=== PATIENT | female | born 1970 | race Caucasian/White ===

== ENCOUNTER → 2016-08-04 | Outpatient (CLI) | payer BC | END | disposition disaster alternative care site (69) | LOC: GBCOE 12:29 | DX: Z13.820 Encounter for screening for osteoporosis (principal); M85.89 Other specified disorders of bone density and structure, multiple sites ==

== ENCOUNTER 2016-10-03 09:15 | Emergency (ER) | payer BC ==
--- NOTE | ~2016-10-03 | ER ---
PATIENT'S NAME: ALEXA ELLIOTT [facility] AGE: 46 Y [address] ROOM: [place] [id number] LOCATION: ED ADMIT DATE: 10/03/2016 ER/Outpatient Report DISCHARGE DATE: 10/03/2016 FAMILY PHYSICIAN: Ernesto Maharaj MD ATTENDING PHYSICIAN: Paco Elliott CHIEF COMPLAINT: Abdominal pain. HISTORY OF PRESENT ILLNESS: Ms Elliott presents for evaluation of abdominal pain. This has been present for 2 weeks but has been significantly worse over the last few days. She was recently traveling and developed some constipation, but since she returned and has been even worse. She has tried some stool softeners with no improvement. She also notes that she has hemorrhoids and this makes it somewhat hesitant for her to stool. She has been trying some hemorrhoid cream, but that does not seem to be working. She has not contacted her primary care physician, Dr. Maharaj, regarding this issue. She reports the pain is cramping in nature and [id number] pain in episodes. PAST MEDICAL HISTORY: Documented on the record and reviewed by me. SOCIAL HISTORY: Documented on the record and reviewed by me. MEDICATIONS: Documented on the record and reviewed by me. ALLERGIES: DOCUMENTED ON THE RECORD AND REVIEWED BY ME. REVIEW OF SYSTEMS: All systems reviewed and negative except as noted in the HPI. PHYSICAL EXAMINATION: VITAL SIGNS: Blood pressure 129/75, pulse 85, respiratory rate 18, temperature 99.1, SpO2 is 96% on room air. Pain is minimal at this time. GENERAL: Age appropriate female, sitting upright on the exam chair no apparent pain or distress. NEUROLOGIC: Awake and alert. GCS 15. No focal deficits. No asymmetry. HEENT: Normocephalic, atraumatic. Eyes are PERRL. Oropharynx is clear. NECK: Supple. Trachea is midline CHEST/HEART: Regular rate and rhythm with PATIENT'S NAME: ALEXA ELLIOTT [facility] AGE: 46 Y [address] ROOM: [place] [id number] LOCATION: [facility] ADMIT DATE: 10/03/2016 ER/Outpatient Report DISCHARGE DATE: 10/03/2016 FAMILY PHYSICIAN: Ernesto Maharaj MD ATTENDING PHYSICIAN: Paco Elliott no murmurs. LUNGS: Clear to auscultation bilateral with no rhonchi, wheezes, or rales. ABDOMEN: Diffusely tender. No focal rebound, guarding, or masses. BACK: Normal to inspection and palpation. No CVA tenderness. EXTREMITIES: Warm and well perfused. No deformities or edema. SKIN: Clean, dry, and intact. No rashes. LABORATORY DATA AND X-RAYS: No imaging was obtained for this patient. CBC minimal elevation of white count of 12.4, hemoglobin 16.2, platelets of 266. CMS with no appreciable abnormalities of electrolytes, renal function, or LFTs other than a bilirubin of 2.2. Free T4 is 1.3, TSH is 0.059. Urinalysis does not appear to have any obvious abnormalities other than 25 leukocytes and 4 of urobilinogen and high bilirubin. No evidence of infection of blood. Ionized calcium is 4.49. IMPRESSION: 1. Constipation, unclear etiology. 2. Mild hyperbilirubinemia, likely secondary to lack of bowel evacuation. 3. No evidence of hepatobiliary dysfunction otherwise. EMERGENCY DEPARTMENT COURSE: The patient was seen evaluated as above. She was given prescriptions for mag citrate and some [place] for pain, should she require it. I explained this would likely cause her constipation to be worse. She has been passing gas regularly. She has been having occasional scant stool, but has not had a definitive large bowel movement for several days. I am recommending close followup with Dr. Maharaj tomorrow. I spoke with him and he will see her in clinic. The patient is to try mag citrate x2 today to encourage bowel movement. Follow up with him tomorrow. All questions answered. The patient was discharged in good condition. MD BRITTANY MOON/ramon /[id number] d: 10/04/16 1641 t: 10/17/16 0950, OUTPATIENT REPORT
[2016-10-03 10:31] LABS: BASOPHIL % 0.2 %; EOSINOPHIL % 0.2 %; HEMATOCRIT 43.8 % (33.0-46.0); HEMOGLOBIN 16.2 g/dL (10.0-15.0); IMMATURE GRANULOCYTE % 0.2 %; LYMPHOCYTE # 0.6 K/uL (0.8-4.0); LYMPHOCYTE % 5.1 %; MCH 33.7 pg (27.0-34.0); MCV 91.1 fl (83.0-98.0); MONOCYTE # 0.4 K/uL (0.0-1.0); MONOCYTE % 3.3 %; MPV 7.9 fl (9.4-12.4); NEUTROPHIL # (ANC) 11.3 K/uL (1.8-7.8); NRBC % 0 /100WBC (0-0.00); PLATELET COUNT 266 K/uL (150-450); RBC 4.81 M/uL (3.50-5.50); RDW-CV 11.6 % (11.9-14.6); WBC 12.4 K/uL (4.0-11.0)
[2016-10-03 10:51] LABS: ALK PHOS 47 IU/L (33-138); ALT 20 IU/L (12-78); ANION GAP 12.3 (10.0-19.0); AST 23 IU/L (10-40); BLOOD UREA NITROGEN 8 mg/dL (6-24); CALCIUM 8.6 mg/dL (8.5-10.5); CHLORIDE 106 mMol/L (96-110); CO2 24 mMol/L (22-32); CREATININE 0.7 mg/dL (0.5-1.1); POTASSIUM 4.3 mMol/L (3.7-5.1); SODIUM 138 mMol/L (135-145); TOTAL BILIRUBIN 2.2 mg/dL (0.0-1.5); TOTAL PROTEIN 7.2 g/dL (6.0-8.4)
[2016-10-03 11:00] LABS: BLOOD URINE NEGATIVE /UL (NEGATIVE); GLUCOSE URINE NEGATIVE (NEGATIVE); KETONE URINE NEGATIVE (NEGATIVE); LEUKOCYTES URINE 25 /UL (NEGATIVE); NITRITE URINE NEGATIVE (NEGATIVE); PROTEIN URINE NEGATIVE (NEGATIVE); TURBIDITY URINE CLEAR (CLEAR); UROBILINOGEN URINE 4 mg/dL (NORMAL)
[2016-10-03 11:01] LABS: COLOR URINE AMBER (YELLOW)
[2016-10-03 11:05] LABS: WBC URINE 0-2 #/HPF (NEGATIVE)
[2016-10-03 11:06] LABS: RBC URINE NEGATIVE #/HPF (NEGATIVE)
[2016-10-03 11:07] LABS: AMORPHOUS URINE 1+ (NEGATIVE); BACTERIA URINE NEGATIVE (NEGATIVE); MUCUS URINE 1+ (NEGATIVE)
== END 2016-10-03 11:39 | disposition disaster alternative care site (69) ==
LOC: GMED 09:15
PROVIDERS: Emergency Medicine
DX: K59.00 Constipation, unspecified (principal); E80.6 Other disorders of bilirubin metabolism; Z79.899 Other long term (current) drug therapy; Z98.890 Other specified postprocedural states